=== PATIENT | female | born 1940 | race Caucasian/White ===

== ENCOUNTER → 2023-06-08 10:03 | Outpatient (REF) | payer MEDICARE, OTHER, SELFPAY | LOC: HWWDC 10:03 | PROVIDERS: ATTENDING PHYSICIAN Family Medicine | DX: Z12.31 Encounter for screening mammogram for malignant neoplasm of breast (principal) | CPT/HCPCS: 77063; 77067 ==

== ENCOUNTER → 2023-07-28 10:50 | Outpatient (REF) | payer MEDICARE, OTHER, SELFPAY | LOC: RAD 10:50 | PROVIDERS: ATTENDING PHYSICIAN Internal Medicine Cardiovascular Disease; FAMILY PHYSICIAN Family Medicine | DX: R06.02 Shortness of breath (principal) | CPT/HCPCS: 71046 ==

== ENCOUNTER → 2023-09-29 10:58 | Outpatient (REF) | payer MEDICARE, OTHER, SELFPAY | LOC: HWRAD 10:58 | PROVIDERS: ATTENDING PHYSICIAN Physician Assistant Surgical; FAMILY PHYSICIAN Family Medicine | DX: M54.16 Radiculopathy, lumbar region (principal) | CPT/HCPCS: 72110 ==

== ENCOUNTER → 2023-10-04 14:44 | Outpatient (REF) | payer MEDICARE, OTHER, SELFPAY | LOC: HWRAD 14:44 | PROVIDERS: ATTENDING PHYSICIAN Physician Assistant Medical | DX: M25.511 Pain in right shoulder (principal) | CPT/HCPCS: 73030 ==

== ENCOUNTER → 2023-11-03 11:08 | Outpatient (REF) | payer MEDICARE, OTHER, SELFPAY | LOC: HWRAD 11:08 | PROVIDERS: ATTENDING PHYSICIAN Psychiatry & Neurology Neurology; FAMILY PHYSICIAN Family Medicine | DX: M54.16 Radiculopathy, lumbar region (principal) | CPT/HCPCS: 72202; 73502 ==

== ENCOUNTER → 2023-11-30 08:54 | Outpatient (REF) | payer MEDICARE, OTHER, SELFPAY | LOC: HWRAD 08:54 | PROVIDERS: ATTENDING PHYSICIAN Family Medicine | DX: R51.9 Headache, unspecified (principal) | CPT/HCPCS: 70470; Q9967 ==

== ENCOUNTER → 2024-02-17 10:09 | Outpatient (REF) | payer MEDICARE, OTHER, SELFPAY | LOC: RAD 10:09 | PROVIDERS: ATTENDING PHYSICIAN Nurse Practitioner; FAMILY PHYSICIAN Family Medicine | DX: K21.9 Gastro-esophageal reflux disease without esophagitis (principal); R13.10 Dysphagia, unspecified; R11.10 Vomiting, unspecified; R05.3 Chronic cough | CPT/HCPCS: 74246 ==

== ENCOUNTER 2024-05-08 06:21 | Day surgery (SDC) | payer MEDICARE, OTHER, SELFPAY | END 2024-05-08 13:04 | disposition home or self-care (01) | LOC: GI 06:21 | PROVIDERS: ATTENDING PHYSICIAN Internal Medicine Gastroenterology | DX: R12 Heartburn (principal); K44.9 Diaphragmatic hernia without obstruction or gangrene; K31.7 Polyp of stomach and duodenum; K22.89 Other specified disease of esophagus; K31.89 Other diseases of stomach and duodenum | CPT/HCPCS: 43239; 88305 ==

== ENCOUNTER → 2024-08-08 07:56 | Outpatient (REF) | payer MEDICARE, OTHER, SELFPAY | LOC: RAD 07:56 | PROVIDERS: ATTENDING PHYSICIAN Internal Medicine Gastroenterology; FAMILY PHYSICIAN Family Medicine | DX: K21.9 Gastro-esophageal reflux disease without esophagitis (principal) | CPT/HCPCS: 78264; A9541 ==

== ENCOUNTER → 2025-01-04 11:37 | Outpatient (REF) | payer MEDICARE, OTHER, SELFPAY | LOC: HWRCS 11:37 | PROVIDERS: ATTENDING PHYSICIAN Student in an Organized Health Care Education/Training Program; FAMILY PHYSICIAN Family Medicine | DX: Z01.818 Encounter for other preprocedural examination (principal); R94.31 Abnormal electrocardiogram [ECG] [EKG] | CPT/HCPCS: 78452; 93017; A9500; J2785 ==

== ENCOUNTER 2025-03-29 01:55 | Emergency (ER) | payer MEDICARE, OTHER, SELFPAY ==
[2025-03-29] VITALS (14 sets, daily range): BP systolic 127–192; BP diastolic 48–86; BMI 31.5
[2025-03-29 02:20] LABS: Hematocrit 34.5 % (37.0-47.0); Hemoglobin 11.0 g/dL (12.0-16.0); Mean Corp Hgb Conc. 31.9 g/dL (33.0-37.0); Mean Corpuscular Volume 90.8 fL (81.0-99.0); Nucleated Red Blood Cells % 0 %; Platelet Count 260 10^3/uL (130-400); Red Cell Dist. Width 13.6 % (11.5-14.5)
[2025-03-29 02:29] LABS: Urine Character Clear (Clear)
[2025-03-29 02:44] LABS: ALT (SGPT) 23 U/L (0-35); AST (SGOT) 27 U/L (14-36); Albumin 4.2 g/dl (3.5-5.0); Alkaline Phosphatase 92 U/L (38-126); Blood Urea Nitrogen 27 mg/dl (7-17); Calcium 9.4 mg/dl (8.4-10.2); Carbon Dioxide 30 mmol/L (22-30); Chloride 103 mmol/L (98-107); Estimated Creatinine Clearance 47 ml/min; Glucose 103 mg/dl (70-99); Potassium 3.9 mmol/L (3.5-5.1); Sodium 140 mmol/L (135-145); Total Protein 6.7 g/dl (6.3-8.2); eGFR > 60.00
[2025-03-29 02:55] LABS: Troponin I 0.014 ng/ml
[2025-03-29 03:01] LABS: Urine Red Blood Cell 0-2 /HPF (0-2)
[2025-03-29 03:02] LABS: Urine White Cell 26-30 /HPF (0-5)
[2025-03-29 05:48] LABS: Troponin I 0.015 ng/ml
[2025-03-29] MEDS: NITRO-BID 1 INCH TOPICAL (06:01)
--- NOTE | 2025-03-29 06:11 | ED.GENMED ---
History of Present Illness
<Miguel Yancy Rosado, DO - Last Filed: 03/29/25 06:27>
General
Chief Complaint: Chest Pain
Source: patient
Exam Limitations: none
Time Seen by Provider: 03/29/25 01:59
Nursing documentation reviewed up to this point in time: agreed with
History of Present Illness
History of Present Illness:
Note:
CHIEF COMPLAINT(S)
Chest pain.
HISTORY OF PRESENT ILLNESS
The patient is an 84-year-old female presenting with chest pain. The symptoms began around 10:00 PM while she was preparing for bed. She has no history of similar chest pain. The patient described the pain as initially reminiscent of heartburn,
indicating discomfort with deep breaths; the pain intensifies when taking a deeper breath. She denies being on any blood thinners. She notes a difficulty in taking deep breaths, which exacerbates the pain. Patient has a [employer] pacemaker
which was placed out in [place] in 2008. She also had lead replacement sometime thereafter. She saw Dr. Alina Navas, cardiology for preop clearance 6 months ago.
PAST MEDICAL AND SURGICAL HISTORY
[employer] pacemaker
Minimally invasive lumbar spine surgery
High blood pressure
Hyperlipidemia
Hypothyroid
CHRONIC MEDICAL CONDITIONS SIGNIFICANTLY AFFECTING CARE
GERD,
Pacemaker
Chronic low back pain
MEDICATIONS
The patient is not taking any blood thinners.
Physical Exam
Vital signs and allergy list reviewed and agreed with.
GENERAL: Alert , in minimal apparent distress. No chest pain upon arrival but intermittent chest pain throughout the ER stay.
EYE: pupils equal, EOMI, anicteric
NECK: Supple, no significant adenopathy. No masses. Trachea midline
ENT: Oropharynx is clear, mmm.
CARDIAC: Regular rate and rhythm . No M/R/G
LUNGS: Clear breath sounds bilaterally, no acute respiratory distress, no wheezes/rales/rhonchi
ABDOMEN: Soft, without focal tenderness, no r/g, no cvat. Normal BSx4q
NEUROLOGICAL: Alert and oriented, no focal neuro deficits
SKIN: Warm and dry, skin intact.
MUSCULOSKELETAL: No edema, well perfused. Moves all 4 extremities
PSYCH: Normal and appropriate interaction.
PLAN
1. Obtain a computed tomography scan (CT scan) of the chest to evaluate the cause of chest pain and check for any potential obstructions or concerns about the kidneys.
2. Assess lung sound and function further to confirm observations and determine if interventions are necessary.
3. Follow up on findings of CT scan.
DIFFERENTIAL DIAGNOSIS
The Differential Diagnosis includes, in no particular order and is not limited to:
1. Angina Pectoris
2. Gastroesophageal Reflux Disease (GERD)�patient has a history
3. Pulmonary Embolism
4. Myocardial Infarction
5. Costochondritis
6. Pneumothorax
7. Pericarditis
8. Pleuritis
9. Aortic Dissection
10. Musculoskeletal Chest Pain
CARE-UPDATE
03/29/25 - 06:14
Patient reported recurrence of chest pain. Dr. Luan Silva, cardiology, will send a contact center team lead to evaluate her in the ER. Attempted pacemaker interrogation was unsuccessful.
Course
<Miguel Rosado, DO - Last Filed: 03/29/25 06:27>
Orders/Labs/Results
Orders:
Orders
03/29/25
Electrocardiogram (*1) Stat
Reason for Study: Chest Pain
Comment: DONE
03/29/25 02:09
C-Reactive Protein Urgent
Comment: ADD ON
Complete Blood Count/With Diff Urgent
Comprehensive Metabolic Panel Urgent
Troponin I Urgent
03/29/25 02:19
Urinalysis Reflex To Culture Urgent
Date Specimen was Collected: 03/29/25
Time Specimen was Collected: 02:15
Urine Microscopic Reflex Cult Urgent
Urine Culture Urgent
BISMARK Source: U
Specimen Description:
Date Specimen was Collected: 03/29/25
Time Specimen was Collected: 02:15
03/29/25 02:59
CT Chest PE Study Urgent
Comment:
Reason For Exam: pain with insp, cp
03/29/25 04:30
EKG- Treatment ONCE
03/29/25 05:05
Troponin I Routine
03/29/25 05:09
Electrocardiogram (*1) Routine
Reason for Study: Chest Pain
03/29/25 05:58
Nitroglycerin Ointment [Nitro-Bid] 1 inch TOPICAL NOW STA
Nitroglycerin Sublingual [Nitrostat (Sublingual)] 0.4 mg .ROUTE .STK-MED ONE
03/29/25 06:06
Electrocardiogram (*1) Urgent
Reason for Study: Hypertension, Benign
EKG- Treatment ONCE
03/29/25 09:15
Add On- LAB Urgent
Tests Added?: CRP
Echo 2D MMode Color/Doppler Routine
Reason for Study: chest pressure
03/29/25 09:33
Ketorolac [Toradol] 30 mg IV NOW STA
Abnormal Lab Results
03/29/25 03/29/25
02:09 02:19
WBC 14.0 H 10^3/uL
(4.8-10.8)
RBC 3.80 L 10^6/uL
(4.20-5.40)
Hgb 11.0 L g/dL
(12.0-16.0)
Hct 34.5 L %
(37.0-47.0)
MCHC 31.9 L g/dL
(33.0-37.0)
Abs Immat Gran (auto) 0.1 H 10^3/uL
(0-0.05)
Absolute Neuts (auto) 9.7 H 10^3/uL
(1.4-6.5)
Absolute Monos (auto) 1.8 H 10^3/uL
(0.1-0.6)
Lymphocytes % 14.1 L %
(20.5-51.1)
Monocytes % 12.8 H %
(1.7-9.3)
BUN 27 H mg/dl
(7-17)
Glucose 103 H mg/dl
(70-99)
Leukocyte Esterase Rfl 1+ A
(Negative)
Urine WBC (Reflex) 26-30 A /HPF
(0-5)
Urine Albumin (Reflex) 1+ A
(Neg - Trace)
03/29/25 02:09
03/29/25 02:09
Vital Signs
Initial and Last Documented VS:
Initial Vital Signs
Temp Pulse Resp BP Pulse Ox
98.1 F 77 20 192/82 96
03/29/25 01:58 03/29/25 01:58 03/29/25 01:58 03/29/25 01:58 03/29/25 01:58
Last Documented Vital Signs
Temp Pulse Resp BP Pulse Ox
98.1 F 74 18 132/60 95
03/29/25 01:58 03/29/25 12:00 03/29/25 12:00 03/29/25 12:00 03/29/25 11:49
<Mathieu Ortiz, DO - Last Filed: 03/29/25 13:08>
Orders/Labs/Results
Orders:
Orders
03/29/25
Electrocardiogram (*1) Stat
Reason for Study: Chest Pain
Comment: DONE
03/29/25 02:09
C-Reactive Protein Urgent
Comment: ADD ON
Complete Blood Count/With Diff Urgent
Comprehensive Metabolic Panel Urgent
Troponin I Urgent
03/29/25 02:19
Urinalysis Reflex To Culture Urgent
Date Specimen was Collected: 03/29/25
Time Specimen was Collected: 02:15
Urine Microscopic Reflex Cult Urgent
Urine Culture Urgent
BISMARK Source: U
Specimen Description:
Date Specimen was Collected: 03/29/25
Time Specimen was Collected: 02:15
03/29/25 02:59
CT Chest PE Study Urgent
Comment:
Reason For Exam: pain with insp, cp
03/29/25 04:30
EKG- Treatment ONCE
03/29/25 05:05
Troponin I Routine
03/29/25 05:09
Electrocardiogram (*1) Routine
Reason for Study: Chest Pain
03/29/25 05:58
Nitroglycerin Ointment [Nitro-Bid] 1 inch TOPICAL NOW STA
Nitroglycerin Sublingual [Nitrostat (Sublingual)] 0.4 mg .ROUTE .STK-MED ONE
03/29/25 06:06
Electrocardiogram (*1) Urgent
Reason for Study: Hypertension, Benign
EKG- Treatment ONCE
03/29/25 09:15
Add On- LAB Urgent
Tests Added?: CRP
Echo 2D MMode Color/Doppler Routine
Reason for Study: chest pressure
03/29/25 09:33
Ketorolac [Toradol] 30 mg IV NOW STA
Abnormal Lab Results
03/29/25 03/29/25
02:09 02:19
WBC 14.0 H 10^3/uL
(4.8-10.8)
RBC 3.80 L 10^6/uL
(4.20-5.40)
Hgb 11.0 L g/dL
(12.0-16.0)
Hct 34.5 L %
(37.0-47.0)
MCHC 31.9 L g/dL
(33.0-37.0)
Abs Immat Gran (auto) 0.1 H 10^3/uL
(0-0.05)
Absolute Neuts (auto) 9.7 H 10^3/uL
(1.4-6.5)
Absolute Monos (auto) 1.8 H 10^3/uL
(0.1-0.6)
Lymphocytes % 14.1 L %
(20.5-51.1)
Monocytes % 12.8 H %
(1.7-9.3)
BUN 27 H mg/dl
(7-17)
Glucose 103 H mg/dl
(70-99)
Leukocyte Esterase Rfl 1+ A
(Negative)
Urine WBC (Reflex) 26-30 A /HPF
(0-5)
Urine Albumin (Reflex) 1+ A
(Neg - Trace)
03/29/25 02:09
03/29/25 02:09
Vital Signs
Initial and Last Documented VS:
Initial Vital Signs
Temp Pulse Resp BP Pulse Ox
98.1 F 77 20 192/82 96
03/29/25 01:58 03/29/25 01:58 03/29/25 01:58 03/29/25 01:58 03/29/25 01:58
Last Documented Vital Signs
Temp Pulse Resp BP Pulse Ox
98.1 F 74 18 132/60 95
03/29/25 01:58 03/29/25 12:00 03/29/25 12:00 03/29/25 12:00 03/29/25 11:49
<Miguel Rosado, DO - Last Filed: 03/29/25 06:27>
*Radiology
Radiology exam reviewed: radiology read reviewed (Negative for PE)
*Pulse Oximetry
SaO2: 95
Oxygen Mode of Delivery: Room air
Patient hypoxic: no
*EKG
Interpreted by ED Provider?: Yes
EKG Intrepretation Date: 03/29/25
Interpretation: abnormal
Comparison EKG: no changes
Heart Rate: 73
Rhythm: ventricular paced
[place]: normal axis
Interval: normal interval
QRS Pattern: normal QRS
*Critical Care Note
Total Time (30-74mins, 75-104mins- exclusive of procedures): Not Applicable
Data Reviewed
Review of Other/Old Records Reveals: Labs and Records
Source: patient
<Miguel Rosado, DO - Last Filed: 03/29/25 06:27>
Update Note
Update Note:
NAME: STEVEN LEON
DATE OF EXAM: 03/29/2025
Patient No: [id number]
Physician: DAVID^MANUEL
Date of : 1940
Past Medical History (entered by Technologist):
Reason For Exam (entered by Technologist):
Other Notes (entered by Technologist): Patient called EMS for substernal chest pain that started @ 10:30PM. She took 4 baby asa at home and EMS gave her 1 SL Nitro. Patient was also found to be hypertensive. BP upon arrival is 192/82
Additional Information (per [facility]iologist):
CT PULMONARY ANGIOGRAM:
IMPRESSION
Mild atelectasis. No evidence of pulmonary embolism.
Images of the aorta are without evidence of aneurysm, mild atherosclerosis.
Pacemaker.
Borderline bronchial wall thickening suggestive of an airway inflammatory process such as asthma or bronchitis. No focal consolidation. Mild atelectasis
Case finalized on 03/29/25 03:43 EDT
Marilynn Callejas M.D.
This report has been electronically signed and verified by the Radiologist whose name is printed above.
<Mathieu Ortiz, DO - Last Filed: 03/29/25 13:08>
Update Note
Update Note:
NAME: STEVEN LEON
DATE OF EXAM: 03/29/2025
Patient No: [id number]
Physician: DAVID^MIGUEL^Yancy
Date of : 1940
Past Medical History (entered by Technologist):
Reason For Exam (entered by Technologist):
Other Notes (entered by Technologist): Patient called EMS for substernal chest pain that started @ 10:30PM. She took 4 baby asa at home and EMS gave her 1 SL Nitro. Patient was also found to be hypertensive. BP upon arrival is 192/82
Additional Information (per [facility]iologist):
CT PULMONARY ANGIOGRAM:
IMPRESSION
Mild atelectasis. No evidence of pulmonary embolism.
Images of the aorta are without evidence of aneurysm, mild atherosclerosis.
Pacemaker.
Borderline bronchial wall thickening suggestive of an airway inflammatory process such as asthma or bronchitis. No focal consolidation. Mild atelectasis
Case finalized on 03/29/25 03:43 EDT
Marilynn Callejas M.D.
This report has been electronically signed and verified by the Radiologist whose name is printed above.
1 PM care of patient was transitioned earlier in the morning pending cardiac evaluation. Cardiology did evaluate the patient and believes this to be more costochondritis more than anything. At this time, I was directed to remove the nitroglycerin
paste. An echo was performed per cardiology suggestion. Echo negative per cardiology and patient stable to go from a cardiac standpoint
ED Attending Note
<Miguel Rosado, DO - Last Filed: 03/29/25 06:27>
-
Portions of this chart may have been created with voice recognition software.� Occasional wrong word or��sound alike� substitutions may have occurred due to the inherent limitations of voice recognition software.
Discharge Plan
Departure
Patient Disposition: Home (Routine Discharge)
Date of Disposition: 03/29/25
Time of Disposition: 13:06
Patient with high blood pressure during this ER visit?: No
Condition: Fair
Discharge Problem:
Chest pain
Instructions: Chest Pain CBC Follow Up, BLOOD PRESSURE
Referrals:
Jacobo Westbrook MD [Family Provider, Family Practice]
Activity Restrictions/Additional Instructions:
Thank You for choosing [facility].
It was a pleasure meeting you and taking part in your care. We hope for your continued healing and wellness.
Please read discharge instructions in their entirety. However, they are for general education and may not describe your exact diagnosis at discharge. Information on your ER visit and medical conditions were discussed with you along with appropriate
follow up information...
If indicated, please take your medications as instructed and indicated on discharge paperwork.
Please schedule a follow up appointment as directed. Call to schedule an appointment
Please return to the emergency department with ANY change in, persisting, or worsening of symptoms. If any of your symptoms do not improve, or persist, or become more severe within 6-12 hours, please return to the emergency department for further
care.
Please return to the emergency department if you develop a headache, neck pain/stiffness, fever greater than 100.4F, chest pain, shortness of breath, persistent nausea, vomiting, slurred speech, difficulty walking, numbness/tingling, weakness, signs
of infection or any other symptoms that are worrisome to you.
If you have any questions or concerns please do not hesitate to call the Hospital at .
Interventions
Interventions:
*Risk Screen - Suicide Last Done: 03/29/25 01:58
*General Assessment Last Done: 03/29/25 01:58
*Neglect/Abuse Screening Last Done: 03/29/25 01:58
*ED- Fall Risk Assessment Last Done: 03/29/25 01:58
*ED COVID-19 Vaccine History Last Done: 03/29/25 01:58
*ED Influenza Vaccine History Last Done: 03/29/25 01:58
ED- Cardiac Assessment Last Done: 03/29/25 02:35
Discharge Date and Time
Print Language: CENTRAL AFRICAN
--- NOTE | 2025-03-29 08:23 | CON.CAR ---
Addendum entered and electronically signed by Beth Navas MD 03/29/25 10:25:
I saw and evaluated the patient, and I provided the substantive portion of the medical decision making.
I reviewed and agree with the note by TOYIN Golden and it accurately reflects our care.
I personally performed the medical decision making of the this encounter and my assessment and plan is below:
Comment: 84-year-old female with past medical history of hypertension, hyperlipidemia, complete heart block status post pacemaker, left bundle branch block, hiatal hernia and chronic lower back pain presents for evaluation of chest pain. She states
the pain is a pressure on the center of her chest that is worse when taking a deep breath, in fact the worst part of it is she feels like she cannot get air in. She denies any recent fever or chills, viral illness, or fall. She is in physical
therapy for her back. He received nitroglycerin and nitroglycerin paste without any improvement in her pain. Troponins have been checked and they are both negative.
On exam she has a regular rate and rhythm with normal S1-S2 no murmur rubs gallops were appreciated lungs are clear to auscultation bilaterally. She had intense tenderness along the entire sternum. Lower extremities were without any edema.EKG is
sinus rhythm with ventricular pacing.
Assessment:
Chest pain: Seems musculoskeletal/inflammatory in etiology. She is reproducible on exam, that it is pleuritic, and no relief with multiple attempts of nitroglycerin. Given her pacemaker and pleuritic nature, will check an echocardiogram to rule
out significant effusion. Otherwise, we will trial Toradol and reassess pain. Will check a CRP do not suspect an ischemic etiology.
Hypertension: Elevated on arrival in the setting of acute pain. Improved now.
Hyperlipidemia on chronic statin therapy.
Pacemaker: Normal function on EKG follow in device clinic.
Hopeful for discharge after further evaluation and treatment.
Case discussed with Dr. Ortiz.
Original Note:
Consultation
Consultation Request
Date/Time Consultation Requested: 03/29/25 6a
Date/Time Consultation Performed: 03/29/25 7:45a
Requesting Provider: Dr. Rosado
Performing Provider: TOYIN Golden for Dr. Navas
Reason for Consultation: chest pain
Medical History
-
Chief Complaint: chest pain
History of Present Illness:
Mrs. Rios is an 84 yo female with HTN, HLD, CHB s/p [employer] PPM, LBBB, GERD, hiatal hernia and spinal stenosis/DDD, who presents to the ER with c/o chest pressure that began last night at 10p while sitting watching TV. She describes the pain
as pressure feeling, like an elephant is sitting on her chest. This is worse with taking a deep breath, 'feels like I can't get enough breath in'. She called EMS who gave her 4 baby ASA and 1 SL NTG without relief. She has NTG paste on without
any improvement in her pain. She now has a headache. Chest pressure is moderate and unchanged from when it started.
Past Medical History
Past Medical History: Other (as above)
Past Surgical History: Cardiac (PPM) and Orthopedic (left ANTONIO, right TKA)
Social History
Tobacco: Former Smoker
Personal: Single
Living: Alone
Family History
Family History: Reviewed & Not Pertinent
Allergies / Home Medications
Allergy/AdvReac Type Severity Reaction Status Date / Time
No Known Allergies Allergy Verified 03/29/25 02:09
Review of Systems
-
History Source: Patient
All other systems: Negative unless noted
Physical Exam
Vital Signs
Temp Pulse Resp BP Pulse Ox
98.1 F 71 24 141/53 96
03/29/25 01:58 03/29/25 06:16 03/29/25 06:16 03/29/25 06:01 03/29/25 06:16
Lab Results
03/29/25 02:09
03/29/25 02:09
Troponin I 0.015 ng/ml 03/29/25 05:05
Physical Exam
General: Well Developed and Well Nourished
HEENT: Normocephalic, Anicteric and Moist Mucous Membranes
Respiratory: Clear and Non Labored Respirations
Cardiac: S1/S2 and Regular Rhythm
Breast: Deferred by me
GI: Soft, Non Tender, Non Distended and Normal Bowel Sounds
Rectal: Deferred by Provider
Genito-urinary: Clear Urine
Musculoskeletal: No Clubbing, No Cyanosis and No Edema
Skin: Warm and Dry
Neuro: AO x 3
Hematologic/Lymphatic: No Lymphadenopathy
Psych: Calm
Impression / Plan
-
Chest pressure - began acutely last night while watching TV.
- EKG without ischemia, V paced.
- troponin 0.014, 0.015
- unchanged with SL NTG and NTG paste, now has a headache.
- Lexiscan nuclear stress test 12/2024 negative for ischemia, EF 50%.
- chest CT negative for PE, no acute abnormality in the chest.
- check echo and CRP.
HTN - elevated on arrival, improved with NTG.
- continue to monitor.
HLD - on statin therapy.
GERD - stable on Pepcid and PPI.
- has known hiatal hernia.
PPM - [employer] device for CHB.
- stable with normal function, followed in our outpatient device clinic.
Data Reviewed
-
EKG: Tracing Personally Visualized and interpreted (Vpaced)
Medical Tests (Nuc Med, Echo etc): Report Reviewed by me (Lexiscan 12/2024: no ischemia, EF 50%)
Labs: Labs Reviewed by me
Old Records: Reviewed
[2025-03-29 10:24] LABS: C-Reactive Protein 7.30 mg/L (0.0-10.00)
[2025-03-29] MEDS: TORADOL 30 MG IV (10:30)
== END 2025-03-29 14:02 | disposition home or self-care (01) ==
LOC: EMR 01:55
PROVIDERS: EMERGENCY PHYSICIAN Student in an Organized Health Care Education/Training Program; FAMILY PHYSICIAN Family Medicine
DX: R07.9 Chest pain, unspecified (principal); I44.2 Atrioventricular block, complete; I44.7 Left bundle-branch block, unspecified; I10 Essential (primary) hypertension; E78.5 Hyperlipidemia, unspecified; E03.9 Hypothyroidism, unspecified; K21.9 Gastro-esophageal reflux disease without esophagitis; K44.9 Diaphragmatic hernia without obstruction or gangrene; M54.50 Low back pain, unspecified; G89.29 Other chronic pain; M48.00 Spinal stenosis, site unspecified; M51.9 Unspecified thoracic, thoracolumbar and lumbosacral intervertebral disc disorder; Z95.0 Presence of cardiac pacemaker; Z87.891 Personal history of nicotine dependence; Z96.642 Presence of left artificial hip joint; Z96.651 Presence of right artificial knee joint
CPT/HCPCS: 99284; 96374; 71275; 80053; 81003; 81015; 84484; 85025; 86140; 87086; 93005; 93306; Q9967

== ENCOUNTER → 2025-04-25 15:06 | Outpatient (REF) | payer MEDICARE, OTHER, SELFPAY | LOC: WDC 15:06 | PROVIDERS: ATTENDING PHYSICIAN Physician Assistant Medical; FAMILY PHYSICIAN Family Medicine | DX: Z12.31 Encounter for screening mammogram for malignant neoplasm of breast (principal) | CPT/HCPCS: 77063; 77067 ==